=== PATIENT | male | born 1955 | race Caucasian/White ===

== ENCOUNTER 2023-03-25 04:25 | Day surgery (SDC) | payer OTHER ==
[2023-03-19 10:42] VITALS: BMI 29.2
[2023-03-25 11:08] VITALS: TEMP 97.1
[2023-03-25 11:14] VITALS: RESP 15
[2023-03-25 11:50] VITALS: BP 115/71; PULSE 67
== END 2023-03-25 12:23 | disposition home or self-care (01) ==
LOC: JASU-ENDO 04:25
PROVIDERS: ATTEND Internal Medicine Gastroenterology
PROC: 0DJD8ZZ Inspection of Lower Intestinal Tract, Via Natural or Artificial Opening Endoscopic (ICD-10-PCS; principal; 2023-03-25 09:45)
DX: Z12.11 Encounter for screening for malignant neoplasm of colon (principal); K57.30 Diverticulosis of large intestine without perforation or abscess without bleeding; K64.8 Other hemorrhoids
CPT/HCPCS: 82962

== ENCOUNTER 2023-04-08 05:28 | Day surgery (SDC) | payer OTHER ==
[2023-04-02 11:14] VITALS: BMI 29.2
[2023-04-08] MEDS ORDERED: LIDOCAINE VISCOUS 2% ORAL/TOP 15 ML UNIT-DOSE CUP ONE (08:45)
[2023-04-08 09:29] VITALS: TEMP 98
[2023-04-08 10:13] VITALS: PULSE 67; RESP 14
[2023-04-08 10:14] VITALS: BP 122/87
== END 2023-04-08 10:19 | disposition home or self-care (01) ==
LOC: JASU-ENDO 05:28
PROVIDERS: ATTEND Internal Medicine Gastroenterology
PROC: 0DB78ZX Excision of Stomach, Pylorus, Via Natural or Artificial Opening Endoscopic, Diagnostic (ICD-10-PCS; 2023-04-08)
PROC: 0DB68ZX Excision of Stomach, Via Natural or Artificial Opening Endoscopic, Diagnostic (ICD-10-PCS; principal; 2023-04-08 08:45)
DX: K29.50 Unspecified chronic gastritis without bleeding (principal); B96.81 Helicobacter pylori [H. pylori] as the cause of diseases classified elsewhere; I10 Essential (primary) hypertension; E11.9 Type 2 diabetes mellitus without complications; Z79.84 Long term (current) use of oral hypoglycemic drugs
CPT/HCPCS: 82962